=== PATIENT | male | born 1960 | race Caucasian/White ===

== ENCOUNTER 2018-05-27 02:38 | Emergency (ER) | payer OTHER ==
[2018-05-27 02:51] VITALS: BP 136/78; PULSE 105; RESP 20; TEMP 98.1; O2SAT 99
[2018-05-27] MEDS ORDERED: APAP/OXYCODONE 1 EACH TABLET PO ONE (03:10)
[2018-05-27] MEDS ORDERED: APAP/OXYCODONE 1 EACH TABLET ONE (03:13)
== END 2018-05-27 03:35 | disposition home or self-care (01) | DRG 552 ==
LOC: ED 02:38
DX: M54.16 Radiculopathy, lumbar region (principal)
CPT/HCPCS: 99282; 99283; A9270-GY

== ENCOUNTER 2019-03-25 20:46 | Emergency (ER) | payer OTHER ==
[2019-03-25] MEDS ORDERED: ONDANSETRON HCL 4 MG/2 ML SOL IV ONE (20:56)
[2019-03-25] MEDS ORDERED: SODIUM CHLORIDE 0.9% 1000ML 1,000 ML IV ONE (20:56)
[2019-03-25] MEDS ORDERED: KETOROLAC TROMETHAMINE 30 MG/ML SOL IV ONE (20:56)
[2019-03-25 21:01] VITALS: RESP 18; TEMP 97.8
[2019-03-25] MEDS ORDERED: KETOROLAC TROMETHAMINE 30 MG/ML SOL ONE (21:01)
[2019-03-25] MEDS ORDERED: ONDANSETRON HCL 4 MG/2 ML SOL ONE (21:01)
[2019-03-25 21:03] LABS: BASOPHILS % (AUTO) 1 % (0-3); EOSINOPHILS % (AUTO) 2 % (0-9); HEMATOCRIT 48 % (39-53); HEMOGLOBIN 15.8 gm/dl (13.5-17.7); LYMPHOCYTES % (AUTO) 15.4 % (10-50); MEAN CORPUSCULAR HEMOGLOBIN 29.2 pg (27.0-32.0); MEAN CORPUSCULAR HGB CONC 32.9 gm/dl (32.0-36.0); MEAN CORPUSCULAR VOLUME 89 fL (80-100); NEUTROPHILS % (AUTO) 71.5 % (37-80)
[2019-03-25 21:17] LABS: APPEARANCE,URINE Cloudy; BILIRUBIN,URINE NEGATIVE (NEGATIVE); COLOR,URINE Yellow; GLUCOSE, URINE (UA) NEGATIVE (NEGATIVE); KETONES,URINE NEGATIVE (NEGATIVE); LEUKOCYTE ESTERASE ,URINE NEGATIVE (NEGATIVE); NITRATE,URINE NEGATIVE (NEGATIVE); OCCULT BLOOD,URINE 1+ (NEG-TRACE); PH,URINE 8.5; UROBILINOGEN,URINE 0.2 (0.2-1.0 EU)
[2019-03-25 21:17] LABS: CALCIUM 9.3 mg/dl (8.5-10.1); CARBON DIOXIDE 32.5 mEq/L (21-32)
[2019-03-25 21:24] LABS: EPITHELIAL CELLS NEGATIVE (SQUAMOUS); WBC,URINE NEG (0-5AV/HPF)
[2019-03-25 21:25] LABS: BACTERIA RARE (< 1+); CRYSTALS 1+ AMORPH PHOS (0-3 AVE/HPF)
[2019-03-25] MEDS ORDERED: APAP/HYDROCODONE 1 EACH TABLET PO ONE (22:09)
[2019-03-25] MEDS ORDERED: APAP/HYDROCODONE 1 EACH TABLET ONE (22:19)
[2019-03-25 22:38] VITALS: BP 128/79; PULSE 87; O2SAT 95
== END 2019-03-25 22:36 | disposition home or self-care (01) | DRG 694 ==
LOC: ED 20:46
DX: N20.0 Calculus of kidney (principal)
CPT/HCPCS: 74176; 80048; 81001; 85025; 96365; 96374; 96375; 99283; 99284; J1885; J2405; A9270-GY